=== PATIENT | female | born 1965 | race Caucasian/White ===

== ENCOUNTER 2024-07-02 06:22 | Day surgery (SDC) | payer OTHER, SELFPAY | END 2024-07-02 15:11 | disposition home or self-care (01) | LOC: GI 06:22 | PROVIDERS: ATTENDING PHYSICIAN Surgery | DX: Z12.11 Encounter for screening for malignant neoplasm of colon (principal); D12.7 Benign neoplasm of rectosigmoid junction; K63.5 Polyp of colon; Z85.048 Personal history of other malignant neoplasm of rectum, rectosigmoid junction, and anus; Z86.0102 Personal history of hyperplastic colon polyps | CPT/HCPCS: 45380; 88305 ==